=== PATIENT | female | born 1955 | race Caucasian/White ===

== ENCOUNTER 2017-06-15 12:46 | Inpatient (IN) | payer BC ==
[~2017-06-15] VITALS: Ht 172.7 cm; Wt 124.7 kg
[2017-06-15] MEDS ORDERED: GLUCOPHAGE850 MG (13:39)
[2017-06-15] MEDS ORDERED: ENOXAPARIN SODIUM INJ 100 MG/ML SYR SC STA (13:40)
[2017-06-15] MEDS ORDERED: ASPIRIN 81 MG CHEW TAB PO STA (13:40)
[2017-06-15] MEDS ORDERED: PANTOPRAZOLE 40 MG 10ML VIAL IV STA (13:40)
[2017-06-15] MEDS ORDERED: SODIUM CHLORIDE 0.9% 1000ML 1,000 ML IV STA ×2 (13:40)
[2017-06-15] MEDS ORDERED: ADENOSINE 6 MG/2 ML VIAL IV ONE ×2 (13:45→14:00)
[2017-06-15] MEDS ORDERED: METOPROLOL TARTRATE INJ 1 MG/ML VIAL IV ONE ×3 (13:45→14:00)
[2017-06-15] MEDS ORDERED: METOPROLOL TARTRATE 50 MG TAB PO ONE (13:45)
[2017-06-15] MEDS ORDERED: ADENOSINE 6MG/2ML 4 ML ONE (13:47)
[2017-06-15] MEDS ORDERED: SODIUM CHLORIDE 0.9% 1000ML 1,000 ML ONE (13:48)
[2017-06-15 13:49] LABS: BASOPHILS % 0.3 % (0.0-1.0); EOSINOPHILS # (AUTO) 0.2 (0.0-0.4); EOSINOPHILS % 1.7 % (0.0-6.0); HEMATOCRIT 31.8 % (34.2-44.1); HEMOGLOBIN 10.2 g/dL (12.0-16.0); LYMPHOCYTES # (AUTO) 0.9 (1.0-3.2); LYMPHOCYTES % 10.1 % (18.0-39.1); MEAN CORPUSCULAR HEMOGLOBIN 30.2 pg (28-32); MEAN CORPUSCULAR HGB CONC 32.1 g/dL (31-35); MEAN CORPUSCULAR VOLUME 94.1 fL (81-99); MONOCYTES # (AUTO) 0.7 (0.2-0.8); MONOCYTES % 8.4 % (4.4-11.3); NEUTROPHILS # (AUTO) 6.9 (2.1-6.9); NEUTROPHILS % 79.2 % (38.7-80.0); PLATELET COUNT 288 x10e3/uL (140-360); RED BLOOD COUNT 3.38 x10e6/uL (3.6-5.1); RED CELL DISTRIBUTION WIDTH 12.3 % (11.7-14.4)
[2017-06-15 13:53] LABS: INR 1.08; PROTHROMBIN TIME 13.2 seconds (11.9-14.5)
[2017-06-15 13:54] LABS: PARTIAL THROMBOPLASTIN TIME 27.8 seconds (23.8-35.5)
[2017-06-15] MEDS ORDERED: DIGOXIN INJ 0.25 MG/ML 2 ML AMP IV ONE (14:00)
[2017-06-15 14:02] LABS: ALBUMIN 3.6 g/dL (3.5-5.0); ALBUMIN/GLOBULIN RATIO 1.2 (0.8-2.0); ANION GAP 17.7 mmol/L (8-16); CALCIUM 9.5 mg/dL (8.4-10.2); CREATININE, SERUM 1.15 mg/dL (0.57-1.11); MAGNESIUM 1.4 MG/DL (1.3-2.1); POTASSIUM 3.7 mmol/L (3.5-5.1)
[2017-06-15 14:21] LABS: CREATINE KINASE MB 1.4 ng/mL (0-5.0); THYROID STIMULATING HORMONE 2.113 uIU/mL (0.350-4.940)
[2017-06-15] MEDS ORDERED: CEFTRIAXONE SOD 1 GM VIAL ONE ×2 (14:23→14:25)
[2017-06-15] MEDS ORDERED: DEXTROSE 50% SYRINGE 50 ML IV PRN (14:30)
[2017-06-15] MEDS ORDERED: MORPHINE SULFATE 2 MG/ML SYR IV PRN (14:30)
[2017-06-15] MEDS ORDERED: FAMOTIDINE 20 MG/2 ML VIAL IV SCH (14:30)
[2017-06-15] MEDS ORDERED: METOPROLOL TARTRATE 25 MG TAB PO SCH (14:30)
[2017-06-15] MEDS ORDERED: ONDANSETRON HCL INJ 2 MG/ML VIAL IV PRN (14:30)
--- NOTE | 2017-06-15 14:44 | Diagnostic Imaging Report ---
PROCEDURE: A single AP view of the chest. COMPARISON: None. INDICATIONS: SHORTNESS OF BREATH, WEAKNESS, LOW O2 LEVELS FINDINGS: Lines/tubes: None. Lungs: The lungs are well inflated. Central peribronchovascular thickening/cuffing. There is also mild haziness of the medial right lower lung field. Pleura: There is no pleural effusion or pneumothorax. Heart and mediastinum: The cardiac silhouette is borderline in size. Bones: No acute bony abnormality. IMPRESSION: Central peribronchovascular thickening/cuffing. There is also mild haziness of the medial right lower lung field. Underlying infiltrate cannot be excluded. Dictated by: Farhat Aguilar M.D. on 06/15/2017 at 14:43 Electronically approved by: Farhat Aguilar M.D. on 06/15/2017 at 14:43
[2017-06-15] MEDS ORDERED: LASIX40 MG PO (15:03)
[2017-06-15] MEDS ORDERED: ACTOS15 MG PO (15:03)
[2017-06-15] MEDS ORDERED: LANTUS 3ML100 UNITS/ SQ (15:03)
[2017-06-15] MEDS ORDERED: HYDROCHLOROTHIA25 MG (15:03)
[2017-06-15] MEDS ORDERED: GLIMEPIRIDE2 MG PO (15:03)
[2017-06-15] MEDS ORDERED: LOSARTAN POTAS100 MG PO (15:06)
--- OUTSIDE RECORDS SUMMARY | 2017-06-15 18:01 | XMS REPORT ---
Author Author [facility] Address Unknown Phone Unavailable Care Team Providers Care Grocery Packer Name Role Phone ENA NIDA Unavailable Unavailable Problems This patient has no known problems. Allergies, Adverse Reactions, Alerts This patient has no known allergies or adverse reactions. Medications This patient has no known medications. Results Test Description Test Time Test Comments Text Results Atomic Results Result Comments CHEST SINGLE (PORTABLE) [place] [address] Patient Name: AKASH SRIVASTAVA MR #: [id number] : 1955 Age/Sex: 62/F Req #: [id number] Adm Physician: Ordered by: NIDA SUTHERLAND MD, MD Report #: [id number] Location: ER Room/Bed: Procedure: [id number] DX/CHEST SINGLE (PORTABLE) Exam Date: 06/15/17 Exam Time: 1405 REPORT STATUS: Signed PROCEDURE: A single AP view of the chest. COMPARISON: None. INDICATIONS: SHORTNESS OF BREATH, WEAKNESS, LOW O2 LEVELS FINDINGS: Lines/tubes: None. Lungs: The lungs are well inflated. Central peribronchovascular thickening/cuffing. There is also mild haziness of the medial right lower lung field. Pleura: There is no pleural effusion or pneumothorax. Heart and mediastinum: The cardiac silhouette is borderline in size. Bones: No acute bony abnormality. IMPRESSION: Central peribronchovascular thickening/cuffing. There is also mild haziness of the medial right lower lung field. Underlying infiltrate cannot be excluded. Dictated by: Farhat Aguilar M.D. on 06/15/2017 at 14:43 Electronically approved by: Farhat Aguilar M.D. on 06/15/2017 at 14:43 Dictated By: FARHAT AGUILAR MD 1443 Transcribed By: AUGUSTO on 06/15/17 1443 COPY TO: NIDA SUTHERLAND
[2017-06-15 18:44] LABS: BILIRUBIN,URINE NEGATIVE (NEGATIVE); COLOR,URINE YELLOW (YELLOW); KETONES,URINE NEGATIVE (NEGATIVE); LEUKOCYTE ESTERASE ,URINE NEGATIVE (NEGATIVE); NITRITE,URINE NEGATIVE (NEGATIVE); PROTEIN,URINE DIPSTICK NEGATIVE (NEGATIVE); URINE UROBILINOGEN 0.2 mg/dL (0.2 - 1)
[2017-06-15 18:45] LABS: CLARITY,URINE SL CLOUDY (CLEAR)
[2017-06-15 19:17] LABS: EPITHELIAL CELLS,URINE FEW /LPF
[2017-06-15] MEDS: INSULIN REGULAR, HUMAN 100 UNIT/1 ML 3ML VIAL SQ SCH ×2 (19:38→23:00)
[2017-06-15] MEDS ORDERED: AMIODARONE HCL IV ONE ×2 (20:00→20:47)
[2017-06-15] MEDS ORDERED: AMIODARONE HCL 150 MG/100 ML BAG IV ONE (20:00)
[2017-06-15] MEDS ORDERED: AMIODARONE HCL 900 MG in DEXTROSE 5 % 500ML BOTTLE 500 ML IV ONE (20:30)
[2017-06-15] MEDS ORDERED: AMIODARONE HCL 150 MG in DEXTROSE 5% 100ML 100 ML IV SCH (20:30)
[2017-06-15 20:41] LABS: % IRON SATURATION 7 % (15-50); FREE THYROXINE INDEX 2.7248 (1.4-3.8); IRON 25 ug/dL (50-170); THYROID STIMULATING HORMONE 2.106 uIU/mL (0.350-4.940); TOTAL IRON BINDING CAPACITY 368 ug/dL (261-478); TRANSFERRIN 263 mg/dL (180-382)
[2017-06-15] MEDS ORDERED: AMIODARONE HCL INJ 150MG/3ML ONE (20:44)
[2017-06-15] MEDS ORDERED: AMIODARONE 900MG 500 ML IV ONE (20:47)
--- NOTE | 2017-06-15 21:34 | Cardiology Report ---
ECHOCARDIOGRAM M-MODE: Normal chamber sizes, left ventricular hypertrophy, normal contractility, normal mitral and aortic valves, no pericardial effusion. SECTOR SCAN: Normal chamber sizes, borderline left ventricular hypertrophy, abnormal left ventricular wall thickness, diminished left ventricular contractility, normal mitral, aortic, and tricuspid valves, no pericardial effusion. SECTOR SCAN: Abnormal left ventricular wall thickness, diminished left ventricular contractility. Ejection fraction is approximately 50%. Mitral, aortic, and tricuspid valves are grossly normal. There is no pericardial effusion. CARDIAC DOPPLER STUDY WITH COLOR: One-plus aortic regurgitation, 1 to 2+ mitral regurgitation, 1+ tricuspid regurgitation. CONCLUSIONS 1. Left ventricular ejection fraction is approximately 40%. The diminished left ventricular ejection fraction may be due to high heart rate. 2. Mild to moderate mitral regurgitation. 3. Mild aortic regurgitation. 4. Mild tricuspid regurgitation. 5. Abnormal left atrial size. Job#: [id number] EUFEMIA cc:DR NIDA SUTHERLAND
[2017-06-15 22:23] LABS: CREATINE KINASE MB 1.4 ng/mL (0-5.0)
[2017-06-15] MEDS: METOPROLOL TARTRATE 50 MG TAB PO SCH (22:52)
[2017-06-15] MEDS: ENOXAPARIN SOD INJ 60 MG/0.6 ML SYR SC SCH (23:00)
[2017-06-15 23:50] VITALS: BP 98/66
[2017-06-16] VITALS (10 sets, daily range): BP systolic 76–112; BP diastolic 58–66
[2017-06-16 06:36] LABS: BASOPHILS # (AUTO) 0.1 (0.0-0.1); BASOPHILS % 0.7 % (0.0-1.0); EOSINOPHILS # (AUTO) 0.2 (0.0-0.4); EOSINOPHILS % 2.4 % (0.0-6.0); HEMATOCRIT 29.4 % (34.2-44.1); HEMOGLOBIN 9.4 g/dL (12.0-16.0); LYMPHOCYTES # (AUTO) 1.1 (1.0-3.2); LYMPHOCYTES % 15.8 % (18.0-39.1); MEAN CORPUSCULAR HEMOGLOBIN 30.4 pg (28-32); MEAN CORPUSCULAR VOLUME 95.1 fL (81-99); MONOCYTES # (AUTO) 0.7 (0.2-0.8); MONOCYTES % 9.6 % (4.4-11.3); NEUTROPHILS # (AUTO) 5.1 (2.1-6.9); NEUTROPHILS % 71.2 % (38.7-80.0); PLATELET COUNT 256 x10e3/uL (140-360); RED BLOOD COUNT 3.09 x10e6/uL (3.6-5.1); RED CELL DISTRIBUTION WIDTH 12.3 % (11.7-14.4)
[2017-06-16 07:01] LABS: CREATINE KINASE MB 1.1 ng/mL (0-5.0)
[2017-06-16 07:09] LABS: ALBUMIN 3.1 g/dL (3.5-5.0); ANION GAP 11.7 mmol/L (8-16); CALCIUM 9.1 mg/dL (8.4-10.2); CHOL/HDL RATIO 2.1 (3.0-3.6); CREATININE, SERUM 1.16 mg/dL (0.57-1.11); MAGNESIUM 1.4 MG/DL (1.3-2.1); PHOSPHORUS 3.7 MG/DL (2.3-4.7); POTASSIUM 3.7 mmol/L (3.5-5.1)
[2017-06-16] MEDS: INSULIN REGULAR, HUMAN 100 UNIT/1 ML 3ML VIAL SQ SCH (07:30)
[2017-06-16] MEDS: ASPIRIN 81 MG ENTERIC COATED PO SCH (08:22)
[2017-06-16] MEDS ORDERED: LOSARTAN POTASSIUM 100 MG TAB PO SCH (09:00)
[2017-06-16] MEDS: METOPROLOL TARTRATE 50 MG TAB PO SCH ×3 (09:00→21:00)
[2017-06-16] MEDS ORDERED: CLOPIDOGREL BISULFATE 75 MG TAB PO SCH (09:00)
[2017-06-16] MEDS: FAMOTIDINE 10MG/ML 20ML VIAL IV SCH ×2 (09:45→21:39)
[2017-06-16] MEDS: ENOXAPARIN SOD INJ 60 MG/0.6 ML SYR SC SCH ×2 (09:45→21:39)
[2017-06-16] MEDS ORDERED: AMIODARONE HCL 900 MG in DEXTROSE 5% 500ML 500 ML IV SCH (11:45)
[2017-06-16] MEDS: AMIODARONE HCL 900 MG in DEXTROSE 5% 500ML 500 ML IV SCH (12:02)
[2017-06-16] MEDS ORDERED: DEXTROSE 50% SYRINGE 50 ML IV PRN (12:15)
[2017-06-16] MEDS: INSULIN LISPRO 100 UNIT/1 ML 3ML VIAL SQ SCH ×3 (13:08→21:40)
--- NOTE | 2017-06-16 14:53 | Consultation ---
CLINICAL HISTORY: This is a 62-year-old, white woman, seen in the emergency room at [facility] because of rapid atrial fibrillation, atrial flutter, with ventricular rates in the range of 174 beats per minute. This patient's [id number] is an old patient of mine, so they recognized me right away. She apparently has history of hypertension and diabetes. She has been experiencing dyspnea with exertion for approximately a week. Finally, she decided to go see Dr. Tellez today and was found to have atrial fibrillation, atrial flutter, with ventricular rate in the range of 170 beats per minute. She was referred to our emergency room, where she was treated with intravenous adenosine as well as metoprolol and digoxin with slowing of the ventricular rate to the 80-90 range. She was also given fluids apparently because of low blood pressure. Echocardiogram showed ejection fraction of approximately 40%, was possibly exacerbated. Cardiology consultation requested. PAST MEDICAL HISTORY: Remarkable for the above-mentioned conditions. MEDICATIONS AT HOME: Include 1. Lasix 40 mg p.o. daily. 2. Glimepiride 2 mg p.o. daily. 3. Lantus insulin 30 units subcutaneously at bedtime. 4. Metformin 2000 mg b.i.d. 5. Actos 30 mg p.o. every day. 6. Losartan 100 mg p.o. daily. PERSONAL AND SOCIAL HISTORY: She denies smoking, drinking or drug abuse. 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 PAST SURGERY: Included cervical neck surgery, 2013, by as well. PAST MEDICAL HISTORY: Also remarkable for anemia, peptic ulcer disease treated [place] [address] Lorenzo Garcia. PHYSICAL EXAMINATION GENERAL: She is overweight, alert, coherent. VITAL SIGNS: Otherwise, stable. CARDIAC: Jugular veins were not well seen. S1, S2 distant and rapid. LUNGS: Clear. ABDOMEN: Soft. Bowel sounds are present. EXTREMITIES: Showed no cyanosis, clubbing, edema. LABORATORY STUDIES: The white count is 8700, hemoglobin 10.2, platelet count is 288,000. PT is 13.2. INR is 1.0. Urinalysis is negative. Electrolytes are normal. BUN is 30. Creatinine 1.1. GFR 48. Glucose 150. TSH 2.11. Cardiac enzymes are negative. Troponin is normal. IMPRESSIONS 1. Rapid atrial fibrillation/atrial flutter with ventricular rates up to 170: Possibly started a week ago. There is no evidence of intracardiac thrombi by transthoracic echocardiogram, although this is not felt to be completely reliable. 2. Cardiomyopathy with ejection fraction of 40%. This may be related to tachycardia and may improved with time. 3. Diabetes. 4. Hypertension. 5. History of peptic ulcer disease and anemia, 2012. The current hemoglobin is 10.2. 6. History of cervical neck surgery, 2013. 7. Recent usage of pseudoephedrine for allergic rhinitis, which may have triggered the atrial fibrillation. RECOMMENDATION: Avoid pseudoephedrine or any other type of stimulants. Avoid alcohol. Pursue the trial of intravenous amiodarone. If needed, consider transesophageal echocardiogram, electrocardioversion. This patient may require a long-term anticoagulation, but we need to be careful of GI bleeding with history of peptic ulcer disease dating back to 2012 and anemia. Job#: [id number] EUFEMIA cc:HEATHER TELLEZ MD
[2017-06-16] MEDS ORDERED: SODIUM CHLORIDE 0.9% 1000ML 1,000 ML IV SCH (20:15)
[2017-06-16] MEDS: INSULIN DETEMIR 100 UNIT/ML PEN SQ SCH (21:40)
[2017-06-17] VITALS (10 sets, daily range): BP systolic 102–115; BP diastolic 48–69
[2017-06-17] MEDS: INSULIN LISPRO 100 UNIT/1 ML 3ML VIAL SQ SCH ×4 (07:30→20:49)
[2017-06-17] MEDS: ASPIRIN 81 MG ENTERIC COATED PO SCH (10:00)
[2017-06-17] MEDS: ENOXAPARIN SOD INJ 60 MG/0.6 ML SYR SC SCH ×2 (10:00→21:30)
[2017-06-17] MEDS: FERROUS SULFATE 325 MG TAB PO SCH (10:00)
[2017-06-17] MEDS: METOPROLOL TARTRATE 50 MG TAB PO SCH (10:01)
[2017-06-17] MEDS: FAMOTIDINE 10MG/ML 20ML VIAL IV SCH ×2 (10:03→21:30)
[2017-06-17] MEDS: AMIODARONE HCL 200 MG TAB PO SCH (10:16)
[2017-06-17] MEDS: AMIODARONE HCL 900 MG in DEXTROSE 5% 500ML 500 ML IV ONE ×2 (10:16→17:15)
[2017-06-17] MEDS: SODIUM CHLORIDE 0.9% 1000ML 1,000 ML IV SCH ×2 (13:00→21:31)
[2017-06-17] MEDS: SODIUM CHLORIDE 0.9% 1000ML 500 ML IV SCH ×2 (17:10→17:13)
[2017-06-17] MEDS ORDERED: SODIUM CHLORIDE 0.9% 1000ML 1,000 ML IV ONE (20:15)
[2017-06-17] MEDS: METOPROLOL TARTRATE 25 MG TAB PO SCH (20:51)
[2017-06-17] MEDS: INSULIN DETEMIR 100 UNIT/ML PEN SQ SCH (20:52)
[2017-06-18] VITALS (15 sets, daily range): BP systolic 89–119; BP diastolic 34–87
[2017-06-18] MEDS: FAMOTIDINE 10MG/ML 20ML VIAL IV SCH (08:12)
[2017-06-18] MEDS: INSULIN LISPRO 100 UNIT/1 ML 3ML VIAL SQ SCH ×2 (08:12→11:30)
[2017-06-18] MEDS ORDERED: BENZOCAINE 20% SPR 60 ML CAN ONE (08:47)
[2017-06-18] MEDS: METOPROLOL TARTRATE 25 MG TAB PO SCH (09:00)
[2017-06-18] MEDS: AMIODARONE HCL 200 MG TAB PO SCH (09:00)
[2017-06-18] MEDS: FERROUS SULFATE 325 MG TAB PO SCH (09:00)
[2017-06-18] MEDS: ASPIRIN 81 MG ENTERIC COATED PO SCH (09:00)
[2017-06-18] MEDS ORDERED: AMIODARONE HCL 200 MG TAB PO NR (10:45)
--- NOTE | 2017-06-18 14:16 | Operative Report ---
DATE OF PROCEDURE: PROCEDURE: Electrical cardioversion. CLINICAL HISTORY AND INDICATIONS: This is a 52-year-old white woman who presented with atrial flutter, symptomatic. She was treated with intravenous amiodarone, failing to convert. Her initial presentation was relatively early. She had atrial flutter rather than atrial fibrillation, and she has been on anticoagulants. Transthoracic echo failed to show any intracardiac thrombus. After discussing the various diagnostic treatment alternatives including STEVE, we decided to just do the electric shock. PROCEDURE: She was brought to the endoscopy suite in a fasting state. Anesthesia was administered by anesthesiology. The patient underwent single synchronized 100-joule shock and converted to a sinus rhythm PAC. She tolerated the procedure well. CONCLUSION: Successful electrical cardioversion using 100 joules, converting atrial flutter to sinus rhythm. Job#: [id number]
[2017-06-18] MEDS ORDERED: RIVAROXABAN 20 MG TABLET PO SCH (17:00)
[2017-06-18] MEDS ORDERED: LIDOCAINE HCL 2% LOCAL INJ 5 ML SDV VIAL INJ ONE (18:08)
[2017-06-18] MEDS ORDERED: PROPOFOL IV EMULSION 10 MG/ML 20 ML VIAL ONE (18:08)
[2017-06-18] MEDS ORDERED: MIDAZOLAM HCL 2 MG/2 ML VIAL ONE (18:34)
[2017-06-18] MEDS ORDERED: FENTANYL CITRATE/PF 100MCG/2 ML INJ ONE (18:34)
== END 2017-06-18 15:31 | disposition home or self-care (01) | DRG 310 ==
LOC: ER 12:46 → ERHOLD 18:00 → IMCU 23:12
PROVIDERS: ADMIT Internal Medicine; ATTEND Internal Medicine
PROC: 5A2204Z Restoration of Cardiac Rhythm, Single (ICD-10-PCS; principal; 2017-06-18)
DX: I48.92 Unspecified atrial flutter (principal); I42.9 Cardiomyopathy, unspecified; I95.9 Hypotension, unspecified; E11.649 Type 2 diabetes mellitus with hypoglycemia without coma; K27.9 Peptic ulcer, site unspecified, unspecified as acute or chronic, without hemorrhage or perforation; I48.91 Unspecified atrial fibrillation; T44.995A Adverse effect of other drug primarily affecting the autonomic nervous system, initial encounter; D50.9 Iron deficiency anemia, unspecified; I12.9 Hypertensive chronic kidney disease with stage 1 through stage 4 chronic kidney disease, or unspecified chronic kidney disease; N18.3 Chronic kidney disease, stage 3 (moderate)
CPT/HCPCS: 36415; 71045; 80053; 80061; 81001; 82550; 82553; 82948; 83540; 83690; 83735; 84100; 84436; 84443; 84466; 84479; 84484; 85025; 85610; 85730; 87086; 93005; 93306; 96360; 96372; 99284; J0153; J0696; J1160; J1650; J2001; J2250; J7030; J7060

== ENCOUNTER 2017-06-30 13:14 | Emergency (ER) | payer BC ==
[~2017-06-30] VITALS: Ht 172.7 cm; Wt 124.7 kg
[~2017-06-30 13:14] MED LIST: ACTOS15 MG PO; GLIMEPIRIDE2 MG PO; GLUCOPHAGE850 MG; HYDROCHLOROTHIA25 MG; LANTUS 3ML100 UNITS/ SQ; LASIX40 MG PO; LOSARTAN POTAS100 MG PO
--- OUTSIDE RECORDS SUMMARY | 2017-06-30 13:18 | XMS REPORT | Continuity of Care Document ---
Author Author [facility] Organization [facility] Address [address] [place] [address] Phone Unavailable Care Team Providers Care Bar Pilot Name Role Phone HEATHER CORCORAN MD PCP Insurance Providers Guarantor Kaycee Srivastava Address [address] [place] [address] Email [facility] Policy Number [id number] Subscriber's Name Anshul Srivastava W Relationship 01 Group Number [id number] Group Name [employer] Effective Date 08 Advance Directives Directive Response Recorded Date/Time Does the patient have an advance directive? No 06/15/17 5:47pm If yes, is advance directive on file with [facility]? No 06/15/17 5:47pm If not on file with [facility] will patient provide a copy? No 06/15/17 5:47pm Do you have a Directive to Physician? No 06/15/17 5:47pm Do you have a Medical Power of Jig Grinder? No 06/15/17 5:47pm Do you have an out of hospital Do Not Resuscitate Order? No 06/15/17 5:47pm Do you have any special needs we should be aware of? No 06/15/17 5:47pm Do you have a support person here with you today? Yes 06/15/17 5:47pm Did patient receive Notice of Privacy Practices? Yes 06/15/17 5:47pm Did patient receive patient rights and responsibilities? Yes 06/15/17 5:47pm Problems Medical Problem Onset Date Status Atrial flutter with rapid ventricular response Unknown Medications Current Home Medications Medication Dose Units Route Directions Days Qty Instructions Start Date Furosemide (Lasix) 40 Mg Tablet 40 Mg Oral Daily 30 Tab Glimepiride 2 Mg Tablet 4 Mg Oral Insulin Glargine (Lantus 3ML Pen) 100 Units/1 Ml Inj 30 Sub-Q Bedtime Losartan Potassium 100 Mg Tablet 100 Mg Oral Daily patient states takes 100/25 mg Metformin Hcl (Glucophage) 850 Mg Tablet 2,000 Twice A Day Pioglitazone Hcl (Actos*) 15 Mg Tablet 30 Mg Oral Daily 60 Tab Past Home Medications Medication Directions Ordered Status Hydrochlorothiazide 25 Mg Tablet, 25 Mg Daily Discontinued Social History Social History Problem Response Recorded Date/Time Onset Date Status Hx Psychiatric Problems No 06/16/2017 12:54am Not Applicable Not Applicable Hx Eating Disorder No 06/16/2017 12:54am Not Applicable Not Applicable Hx Substance Use Disorder No 06/16/2017 12:54am Not Applicable Not Applicable Hx Depression No 06/16/2017 12:54am Not Applicable Not Applicable Hx Alcohol Use No 06/16/2017 12:54am Not Applicable Not Applicable Hx Substance Use Treatment No 06/16/2017 12:54am Not Applicable Not Applicable Hx Physical Abuse No 06/16/2017 12:54am Not Applicable Not Applicable Smoking Status Start Date Stop Date Never Smoker Hospital Discharge Instructions No hospital discharge instruction information available. Plan of Care Discharge Date 06/18/17 3:31pm Disposition HOME, SELF-CARE Instructions/Education Provided Atrial Fibrillation Diabetes and Diet Prescriptions See Medication Section Additional Instructions/Education - Admission 06/15/2017 - 06/18/2017 - Follow up with endless track vehicle supervisor, Dr. Nuno in 1 week, bring all medications to appointment [address], [address] [place] [id number] Functional Status Query Response Date Recorded FUNCTIONAL STATUS ` June 16, 2017 10:10am Assistive Devices None June 16, 2017 6:53pm Toileting Ability Independent June 16, 2017 6:53pm Allergies, Adverse Reactions, Alerts Allergen Type Severity Reaction Status Last Updated Levofloxacin Allergy Intermediate SEVERE NAUSEA/VOMITING Active 06/15/17 Immunizations No immunization information available. Vital Signs Acute Vital Signs Vital Response Date/Time Temperature (Fahrenheit) 97.6 degrees F (97.6 - 99.5) 06/18/2017 11:50am Pulse Pulse Rate (adult) 64 bpm (60 - 90) 06/18/2017 12:20pm Respiratory Rate 19 bpm (12 - 24) 06/18/2017 11:50am Blood Pressure 99/61 mm Hg 06/18/2017 12:20pm Height 5 ft 8 in 06/15/2017 1:04pm Weight 275 lb 06/15/2017 1:04pm Body Mass Index 41.8 kg/m^2 06/15/2017 1:04pm Results Laboratory Results Test Name Result Units Flags Reference Collection Date/Time Result Date/ Time Comments White Blood Count 7.09 x10e3/uL 4.8-10.8 06/16/2017 6:26am 06/16/2017 6 :36am Red Blood Count 3.09 x10e6/uL L 3.6-5.1 06/16/2017 6:2606/16/2017 6: 36am Hemoglobin 9.4 g/dL L 12.0-16.0 06/16/2017 6:06/16/2017 6:36am Hematocrit 29.4 % L 34.2-44.1 06/16/2017 6:2606/16/2017 6:36am Mean Corpuscular Volume 95.1 fL 81-99 06/16/2017 6:am 06/16/2017 6: 36am Mean Corpuscular Hemoglobin 30.4 pg 28-32 06/16/2017 6:am 06/16/2017 6:36am Mean Corpuscular Hemoglobin Concent 32.0 g/dL 31-35 06/16/2017 6:am 06/16/2017 6:36am Red Cell Distribution Width 12.3 % 11.7-14.4 06/16/2017 6:2017 6:36am Platelet Count 256 x10e3/uL 140-360 06/16/2017 6:06/16/2017 6: 36am Neutrophils (%) (Auto) 71.2 % 38.7-80.0 06/16/2017 6:06/16/2017 6: 36am Lymphocytes (%) (Auto) 15.8 % L 18.0-39.1 06/16/2017 6:06/16/2017 6 :36am Monocytes (%) (Auto) 9.6 % 4.4-11.3 06/16/2017 6:06/16/2017 6: 36am Eosinophils (%) (Auto) 2.4 % 0.0-6.0 06/16/2017 6:06/16/2017 6: 36am Basophils (%) (Auto) 0.7 % 0.0-1.0 06/16/2017 6:06/16/2017 6:36am IM GRANULOCYTES % 0.3 % 0.0-1.0 06/16/2017 6:06/16/2017 6:36am Neutrophils # (Auto) 5.1 2.1-6.9 06/16/2017 6:06/16/2017 6:36am Lymphocytes # (Auto) 1.1 1.0-3.2 06/16/2017 6:06/16/2017 6:36am Monocytes # (Auto) 0.7 0.2-0.8 06/16/2017 6:06/16/2017 6:36am Eosinophils # (Auto) 0.2 0.0-0.4 06/16/2017 6:06/16/2017 6:36am Basophils # (Auto) 0.1 0.0-0.1 06/16/2017 6:06/16/2017 6:36am Absolute Immature Granulocyte (auto 0.02 x10e3/uL 0-0.1 06/16/2017 6: 06/16/2017 6:36am Prothrombin Time 13.2 seconds 11.9-14.5 06/15/2017 1:40pm 06/15/2017 1: 58pm Prothromb Time International Ratio 1.08 06/15/2017 1:40pm 2017 1:58pm Oral Anticoagulant Therapy INR Values: 1. Low Intensity Therapy 1.5 - 2.0 2. Moderate Intensity Therapy 2.0 - 3.0 3. High Intensity Therapy(1) 2.5 - 3.5 4. High Intensity Therapy(2) 3.0 - 4.0 5. Panic Value INR > 5.0 Activated Partial Thromboplast Time 27.8 seconds 23.8-35.5 06/15/2017 1: 40pm 06/15/2017 1:58pm Urine Color YELLOW YELLOW 06/15/2017 6:00pm 06/15/2017 6:45pm Urine Clarity SL CLOUDY CLEAR 06/15/2017 6:00pm 06/15/2017 6:45pm Urine Specific Premium 1.015 1.010-1.025 06/15/2017 6:00pm 2017 6:45pm Urine pH 6 5 - 7 06/15/2017 6:00pm 06/15/2017 6:45pm Urine Leukocyte Esterase NEGATIVE NEGATIVE 06/15/2017 6:00pm 2017 6:45pm Urine Nitrite NEGATIVE NEGATIVE 06/15/2017 6:00pm 06/15/2017 6:45pm Urine Protein NEGATIVE NEGATIVE 06/15/2017 6:00pm 06/15/2017 6:45pm Urine Glucose (UA) NEGATIVE NEGATIVE 06/15/2017 6:00pm 06/15/2017 6: 45pm Urine Ketones NEGATIVE NEGATIVE 06/15/2017 6:00pm 06/15/2017 6:45pm Urine Urobilinogen 0.2 mg/dL 0.2 - 1 06/15/2017 6:00pm 06/15/2017 6: 45pm Urine Bilirubin NEGATIVE NEGATIVE 06/15/2017 6:00pm 06/15/2017 6: 45pm Urine Blood NEGATIVE NEGATIVE 06/15/2017 6:00pm 06/15/2017 6:45pm Urine WBC NONE /HPF 0-5 06/15/2017 6:00pm 06/15/2017 7:17pm Urine RBC NONE /HPF 0-5 06/15/2017 6:00pm 06/15/2017 7:17pm Urine Bacteria NONE /HPF NONE 06/15/2017 6:00pm 06/15/2017 7:17pm Urine Epithelial Cells FEW /LPF NONE 06/15/2017 6:00pm 06/15/2017 7: 17pm Sodium Level 134 mmol/L L 136-145 06/16/2017 6:06/16/2017 7:10am Potassium Level 3.7 mmol/L 3.5-5.1 06/16/2017 6:06/16/2017 7:10am Chloride Level 101 mmol/L 98-107 06/16/2017 6:06/16/2017 7:10am Carbon Dioxide Level 25 mmol/L 22-29 06/16/2017 6:06/16/2017 7: 10am Anion Gap 11.7 mmol/L 806/16/2017 6:06/16/2017 7:10am Blood Urea Nitrogen 30 mg/dL H 706/16/2017 6:06/16/2017 7:10am Creatinine 1.16 mg/dL H 0.57-1.11 06/16/2017 6:06/16/2017 7:10am BUN/Creatinine Ratio 26 H 606/16/2017 6:06/16/2017 7:10am Estimat Glomerular Filtration Rate 47 ML/MIN L 60- 06/16/2017 6: 7:10am Ranges were taken from the National Kidney Disease Education Program and the National Kid[employer] Foundation literature. Reference ranges: 60 or greater: Normal 16-59 (for 3 consecutive months): Chronic kidney disease 15 or less: Kidney failure Glucose Level 111 mg/dL 74-118 06/16/2017 6:06/16/2017 7:10am Calcium Level 9.1 mg/dL 8.4-10.2 06/16/2017 6:06/16/2017 7:10am Bedside Glucose 144 mg/dL H 70-120 06/18/2017 11:06/18/2017 11: 53am Meter ID: [id number] Phosphorus Level 3.7 MG/DL 2.3-4.7 06/16/2017 6:06/16/2017 7:10am Magnesium Level 1.4 MG/DL 1.3-2.1 06/16/2017 6:06/16/2017 7:10am Iron Level 25 ug/dL L 50-170 06/15/2017 1:20pm 06/15/2017 8:42pm Total Iron Binding Capacity 368 ug/dL 261-478 06/15/2017 1:20pm 2017 8:42pm Percent Iron Saturation 7 % L 15-50 06/15/2017 1:20pm 06/15/2017 8:42pm Transferrin 263 mg/dL 180-382 06/15/2017 1:20pm 06/15/2017 8:42pm Total Bilirubin 0.6 mg/dL 0.2-1.2 06/16/2017 6:06/16/2017 7:10am Aspartate Amino Transf (AST/SGOT) 27 IU/L 5-34 06/16/2017 6:2017 7:10am Alanine Aminotransferase (ALT/SGPT) 34 IU/L 0-55 06/16/2017 6: 7:10am Total Protein 6.1 g/dL L 6.5-8.1 06/16/2017 6:06/16/2017 7:10am Albumin 3.1 g/dL L 3.5-5.0 06/16/2017 6:06/16/2017 7:10am Globulin 3.0 g/dL 2.3-3.5 06/16/2017 6:06/16/2017 7:10am Albumin/Globulin Ratio 1.0 0.8-2.0 06/16/2017 6:06/16/2017 7: 10am Alkaline Phosphatase 76 IU/L 40-150 06/16/2017 6:06/16/2017 7: 10am Triglycerides Level 54 MG/DL 0-149 06/16/2017 6:06/16/2017 7:10am Cholesterol Level 124 MD/DL 0-199 06/16/2017 6:06/16/2017 7:10am Less than 200 mg/dL Low Risk 201 - 239 mg/dL Borderline Risk 240 mg/dl and greater High Risk LDL Cholesterol 54 MG/DL L 60-130 06/16/2017 6:06/16/2017 7:10am HDL Cholesterol 59 MG/DL 40-60 06/16/2017 6:06/16/2017 7:10am Cholesterol/HDL Ratio 2.1 L 3.0-3.6 06/16/2017 6:26am 06/16/2017 7: 10am Creatine Kinase 51 IU/L 29-168 06/16/2017 6:26am 06/16/2017 7:10am Creatine Kinase MB 1.10 ng/mL 0-5.0 06/16/2017 6:26am 06/16/2017 7: 04am Troponin I 0.097 ng/mL 0-0.300 06/16/2017 6:26am 06/16/2017 7:04am Lipase 20 U/L 8-78 06/15/2017 1:20pm 06/15/2017 2:06pm Free Thyroxine Index 2.7248 1.4-3.8 06/15/2017 1:20pm 06/15/2017 8: 42pm Thyroxine (T4) 8.20 ug/dL 4.5-10.9 06/15/2017 1:20pm 06/15/2017 8:42pm Our current method for Total T4 is not recommended for use as the only marker for evaluating patients for thyroid disorders. Triiodothyronine (T3) Uptake 33.23 % 22.5-37.0 06/15/2017 1:20pm 2017 8:42pm Thyroid Stimulating Hormone (TSH) 2.106 uIU/mL 0.350-4.940 06/15/2017 1: 20pm 06/15/2017 8:42pm Procedures Procedure Status Date Provider(s) MRI (magnetic resonance imaging) Active 06/18/17 NANCY ISABEL MD Encounters Encounter Location Arrival/Admit Date Discharge/Depart Date Attending Provider Discharged Inpatient [facility] 06/15/17 6:00pm 06/18/17 3:31pm MATTHIAS MORALES MD
[2017-06-30] MEDS ORDERED: SODIUM CHLORIDE 0.9% 1000ML 1,000 ML IV STA (13:28)
[2017-06-30] MEDS ORDERED: DILTIAZEM HCL 5 MG/ML 5 ML VIAL IV ONE ×2 (13:30→13:45)
[2017-06-30] MEDS ORDERED: METOLAZONE2.5 MG PO (13:39)
[2017-06-30] MEDS ORDERED: AMIODARONE HCL200 MG PO (13:39)
[2017-06-30] MEDS ORDERED: XARELTO20 MG PO (13:39)
[2017-06-30 13:47] LABS: BASOPHILS # (AUTO) 0.1 (0.0-0.1); BASOPHILS % 0.9 % (0.0-1.0); EOSINOPHILS # (AUTO) 0.2 (0.0-0.4); EOSINOPHILS % 3.4 % (0.0-6.0); HEMATOCRIT 36.4 % (34.2-44.1); HEMOGLOBIN 11.8 g/dL (12.0-16.0); LYMPHOCYTES # (AUTO) 1.1 (1.0-3.2); LYMPHOCYTES % 15.1 % (18.0-39.1); MEAN CORPUSCULAR HEMOGLOBIN 29.7 pg (28-32); MEAN CORPUSCULAR HGB CONC 32.4 g/dL (31-35); MEAN CORPUSCULAR VOLUME 91.7 fL (81-99); MONOCYTES # (AUTO) 0.6 (0.2-0.8); NEUTROPHILS # (AUTO) 5.1 (2.1-6.9); NEUTROPHILS % 72.2 % (38.7-80.0); PLATELET COUNT 348 x10e3/uL (140-360); RED BLOOD COUNT 3.97 x10e6/uL (3.6-5.1); RED CELL DISTRIBUTION WIDTH 12.3 % (11.7-14.4)
[2017-06-30 13:57] LABS: INR 2.02; PARTIAL THROMBOPLASTIN TIME 33.6 seconds (23.8-35.5); PROTHROMBIN TIME 21.5 seconds (11.9-14.5)
[2017-06-30 14:06] LABS: ANION GAP 14.4 mmol/L (8-16); CALCIUM 9.6 mg/dL (8.4-10.2); CREATININE, SERUM 1.57 mg/dL (0.57-1.11); POTASSIUM 4.4 mmol/L (3.5-5.1)
[2017-06-30 14:12] LABS: CREATINE KINASE MB 2.1 ng/mL (0-5.0)
[2017-06-30] MEDS ORDERED: FAMOTIDINE 20 MG TAB PO SCH (15:00)
[2017-06-30] MEDS ORDERED: SODIUM CHLORIDE FLUSH 10 ML SYR INJ PRN (15:00)
[2017-06-30] MEDS ORDERED: DEXTROSE 5% IV SCH (15:00)
[2017-06-30] MEDS ORDERED: AMIODARONE HCL IV SCH (15:00)
[2017-06-30] MEDS ORDERED: ONDANSETRON HCL INJ 2 MG/ML VIAL IV PRN (15:00)
[2017-06-30] MEDS ORDERED: DEXTROSE 50% SYRINGE 50 ML IV PRN (15:00)
--- NOTE | 2017-06-30 15:23 | Diagnostic Imaging Report ---
EXAMINATION: CHEST SINGLE (PORTABLE) INDICATION: \S\SOB \[id number] \S\1410 \S\Y COMPARISON: Chest radiograph 06/15/2017 FINDINGS: AP view TUBES and LINES: None. LUNGS: Lungs are well inflated. Lungs are clear. There is no evidence of pneumonia or pulmonary edema. PLEURA: No pleural effusion or pneumothorax. HEART AND MEDIASTINUM: The cardiomediastinal silhouette is unremarkable. BONES AND SOFT TISSUES: No acute osseous lesion. Soft tissues are unremarkable. UPPER ABDOMEN: No free air under the diaphragm. IMPRESSION: No acute thoracic abnormality. Signed by: DR. Lul Fitzgerald MD on 06/30/2017 3:20 PM
[2017-06-30] MEDS ORDERED: SODIUM CHLORIDE 0.9% 1000ML 1,000 ML ONE (15:27)
[2017-06-30] MEDS ORDERED: AMIODARONE HCL 150MG 100 ML IV ONE (15:30)
[2017-06-30] MEDS ORDERED: AMIODARONE HCL 100 ML IV SCH (15:30)
[2017-06-30] MEDS ORDERED: AMIODARONE 900MG 500 ML IV SCH (15:30)
[2017-06-30] MEDS ORDERED: SODIUM CHLORIDE 0.9% 1000ML 1,000 ML IV SCH (15:30)
[2017-06-30] MEDS ORDERED: INSULIN REGULAR, HUMAN 100 UNIT/1 ML 3ML VIAL SQ SCH (16:30)
== END 2017-06-30 17:57 | disposition home or self-care (01) ==
LOC: ER 13:14 → UNDOADMIN 15:32 → ERHOLD 15:32
DX: R00.2 Palpitations (principal); I48.92 Unspecified atrial flutter; I10 Essential (primary) hypertension; E11.9 Type 2 diabetes mellitus without complications; I50.9 Heart failure, unspecified
CPT/HCPCS: 36415; 71045; 80048; 82550; 82553; 84484; 85025; 85610; 85730; 93005; 99284; J7030

== ENCOUNTER → 2019-06-12 | Day surgery (SDC) | payer BC ==
[2019-06-10 13:37] LABS: BASOPHILS # (AUTO) 0.1 (0.0-0.1); BASOPHILS % 0.8 % (0.0-1.0); EOSINOPHILS # (AUTO) 0.1 (0.0-0.4); EOSINOPHILS % 1.7 % (0.0-6.0); HEMATOCRIT 34.8 % (34.2-44.1); HEMOGLOBIN 11.1 g/dL (12.0-16.0); LYMPHOCYTES # (AUTO) 0.8 (1.0-3.2); LYMPHOCYTES % 11.9 % (18.0-39.1); MEAN CORPUSCULAR HEMOGLOBIN 30.2 pg (28-32); MEAN CORPUSCULAR HGB CONC 31.9 g/dL (31-35); MEAN CORPUSCULAR VOLUME 94.8 fL (81-99); MONOCYTES # (AUTO) 0.5 (0.2-0.8); MONOCYTES % 7.9 % (4.4-11.3); NEUTROPHILS % 77.4 % (38.7-80.0); PLATELET COUNT 243 x10e3/uL (140-360); RED BLOOD COUNT 3.67 x10e6/uL (3.6-5.1); RED CELL DISTRIBUTION WIDTH 12.2 % (11.7-14.4)
[2019-06-10 13:49] LABS: INR 0.95; PARTIAL THROMBOPLASTIN TIME 26.4 seconds (23.8-35.5); PROTHROMBIN TIME 13.2 seconds (11.9-14.5)
[2019-06-10 13:54] LABS: ANION GAP 11.4 mmol/L (8-16); CALCIUM 9.4 mg/dL (8.4-10.2); CREATININE, SERUM 1.59 mg/dL (0.57-1.11); POTASSIUM 4.4 mmol/L (3.5-5.1)
--- NOTE | 2019-06-10 15:00 | Diagnostic Imaging Report ---
EXAM: CHEST 2 VIEWS DATE: 06/10/2019 1:19 PM INDICATION: Preoperative evaluation COMPARISON: None FINDINGS: The trachea is midline. Curvilinear opacity identified within the left lower lungs which may reflect atelectasis/scarring. There is no evidence for large focal consolidation, pneumothorax, or significant pleural effusion. The cardiomediastinal silhouette and pulmonary vasculature are within normal limits. Surgical clips noted overlying the left axilla/chest wall. No acute osseous abnormality is identified. IMPRESSION: No acute cardiopulmonary process identified. Signed by: Dr. Carlos Stafford MD on 06/10/2019 2:57 PM
[~2019-06-12] MED LIST changes: +AMIODARONE HCL200 MG PO; +BUMETANIDE1 MG PO; +BUPIVACAINE HCL 0.5% INJ 30 ML VIAL INJ ONE; +DEXAMETHASONE SOD PHOS INJ 4 MG/ML VIAL ONE; +FENTANYL CITRATE/PF 100MCG/2 ML INJ ONE; +JANUVIA100 MG PO; +LANTUS 3ML100 UNITS/ SC; +LETROZOLE PO; +LIDOCAINE HCL 2% LOCAL INJ 5 ML SDV VIAL INJ ONE; +METOLAZONE2.5 MG PO; +METOPROLOL SUCC25 MG PO; +MIDAZOLAM HCL 2 MG/2 ML VIAL ONE; +ONDANSETRON HCL INJ 2MG/ML 2ML 2 MG/ML VIAL ONE; +PROPOFOL IV EMULSION 10 MG/ML 20 ML VIAL ONE; +SEVOFLURANE INHAL SOLN 250 ML PEN BTL ONE; +XARELTO20 MG PO
--- OUTSIDE RECORDS SUMMARY | 2019-06-12 06:34 | XMS REPORT | Summary of Care ---
Author Author Ramya PRESCOTT Organization Unknown Address Unknown Phone Unavailable Care Team Providers Care Theatrical Trouper Name Role Phone BRYON MCFARLAND M.D. 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) Status: Active Dyspnea (786.09, R06.00) Status: Active Infiltrating ductal carcinoma of left female breast (174.9, C50.912) Status: Active Pulmonary embolism (415.19, I26.99) Status: Active Paresthesia of both hands (782.0, R20.2) Status: Active CTS (carpal tunnel syndrome) (354.0, G56.00) Status: Active Acute upper respiratory infection (465.9, J06.9) Status: Active Allergic rhinitis, seasonal (477.9, J30.2) Status: Active Diabetes mellitus type 2, controlled (250.00, E11.9) Status: Active Essential (primary) hypertension (401.9, I10) Status: Active Medications Name Dates Details ALPRAZolam 0.5 MG Oral Tablet TAKE 1 TABLET DAILY as needed Quantity: 30 MCFARLAND M.D.BRYON Active Glimepiride 4 MG Oral Tablet TAKE ONE TABLET BY MOUTH TWICE DAILY. * Quantity: 180 Refills: 1 MCFARLAND M.D.BRYON Active Metoprolol Tartrate 25 MG Oral Tablet TAKE 1 TABLET TWICE DAILY. * Quantity: 30 Refills: 3 MCFARLAND M.D.BRYON Active Fluticasone Propionate 50 MCG/ACT Nasal Suspension USE 2 SPRAYS IN EACH NOSTRIL ONCE DAILY NEEDED * Refills: 0 Active 9.9 ML Bottle Lantus 100 UNIT/ML Subcutaneous Solution INJECT 40 Units IN THE AM AND 10 SQ IN THE PM * Quantity: 6 Refills: 1 BRYON MCFARLAND M.D. Active 10 ML Vial Bumetanide 1 MG Oral Tablet TAKE 1 TABLET BY MOUTH EVERY MON, SUN, AND FRI IN THE MORNING * Quantity: 36 Refills: 1 BRYON MCFARLAND M.D. * Start : 24-Jul-2018 Active Losartan Potassium 25 MG Oral Tablet TAKE 1 TABLET DAILY. * Quantity: 90 Refills: 1 BRYON MCFARLAND M.D. * Start : 24-Jul-2018 Active Xarelto 20 MG Oral Tablet TAKE 1 TABLET DAILY * Quantity: 30 Refills: 6 Active Arnuity Ellipta AEPB 1 PUFF DAILY * Refills: 0 Active 30 Each Pack Januvia 100 MG Oral Tablet TAKE 1 TABLET BY MOUTH EVERY DAY * Quantity: 90 Refills: 1 JOSE MCFARLAND M.D.OLD * Start : 11-Dec-2018 Active Letrozole 2.5 MG Oral Tablet TAKE 1 TABLET DAILY. * Refills: 0 Active BD Insulin Syringe U/F 30G X 1/2" 0.5 ML USE DIRECTED. * Quantity: 200 Refills: 2 BRUNA Tapia BRYON * Start : 12-Feb-2019 Active Allergies and Adverse Reactions Name Dates Details Levaquin TABS (Allergy) Status: Active Past Medical History Name Dates Details History of abnormal mammogram (V15.89, Z87.898) Status: Resolved History of atrial fibrillation (V12.59, Z86.79) Status: Resolved History of congestive heart failure (V12.59, Z86.79) Status: Resolved History of essential hypertension (V12.59, Z86.79) Status: Resolved History of type 2 diabetes mellitus (V12.29, Z86.39) Status: Resolved Procedures Procedure Dates Details History of Catheter Ablation Atrial Fibrillation Completed Comments: Completed: 2018 History of Cervical Vertebral Fusion Completed History of Breast biopsy Completed 06-Jun-2018 History of Breast Surgery Lumpectomy Completed Immunization Name Dates Details Pneumovax 23 25 MCG/0.5ML Injection Injectable on: Apr-2013 Influenza, seasonal, injectable on: 01-Dec-2017 Influenza, seasonal, injectable on: 01-Jan-2019 Tdap on: 01-Jan-2019 Family History Name Dates Details Family history of hypertension (V17.49, Z82.49) Status: Active Name Dates Details Family history of Renal carcinoma (189.0, C64.9) Status: Active Social History Name Dates Details - Status: Name Dates Details Never smoker Vital Signs Date Test Result Details No Known Vitals to report Results Date Description Value Details Results not documented Plan of Care Name Dates Details Planned Observations Planned Goals not documented Planned Encounters Appointment; BRYON MCFARLAND M.D. On: 12-May-2019 10:30 Interventions Provided Medication Changes* Januvia 100 MG Oral Tablet - Renew Instructions Name Dates Details Instructions not documented Encounters Appointment; CIRO HENRIQUEZ Encounter Diagnosis: Problem not documented On: 19-Jul-2017 14:45 Appointment; CIRO HENRIQUEZ Encounter Diagnosis: Problem not documented On: 13-Sep-2017 14:30 Appointment; BRYON MCFARLAND M.D. Encounter Diagnosis: Problem not documented On: 24-Jul-2018 9:30 Appointment; BRYON MCFARLAND M.D. Encounter Diagnosis: Problem not documented On: 29-Jul-2018 14:45 Appointment; BRYON MCFARLAND M.D. Encounter Diagnosis: Problem not documented On: 05-Aug-2018 15:30 Appointment; BRYON MCFARLAND M.D. Encounter Diagnosis: Problem not documented On: 19-Aug-2018 11:30 Appointment; BRYON MCFARLAND M.D. Encounter Diagnosis: Problem not documented On: 19-Sep-2018 11:30 Appointment; BRYON MCFARLAND M.D. Encounter Diagnosis: Problem not documented On: 31-Oct-2018 14:30 Appointment; BRYON MCFARLAND M.D. Encounter Diagnosis: Problem not documented On: 31-Dec-2018 13:45 Appointment; BRYON MCFARLAND M.D. Encounter Diagnosis: Problem not documented On: 14-Feb-2019 13:15 Appointment; BRYON MCFARLAND M.D. Encounter Diagnosis: Problem not documented On: 03-Mar-2019 9:00
--- OUTSIDE RECORDS SUMMARY | 2019-06-12 06:34 | XMS REPORT | Summary of Care ---
Author Author [facility] Address [address] [place] [address] Phone Unavailable Care Team Providers Care Street Cleaner Name Role Phone BRUNA Tapia, BRYON Costello MD Unavailable Unavailable Unavailable Unavailable Functional Status Name Dates Details Functional status health issues are not documented Status: Name Dates Details Cognitive status health issues are not documented Status: Problems Name Dates Details Generalized anxiety disorder (300.02, F41.1) Status: Active Infiltrating ductal carcinoma of left female breast (174.9, C50.912) Status: Active Pulmonary embolism (415.19, I26.99) Status: Active Paresthesia of both hands (782.0, R20.2) Status: Active CTS (carpal tunnel syndrome) (354.0, G56.00) Status: Active Diastolic dysfunction, 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 Active Glimepiride 4 MG Oral Tablet TAKE ONE TABLET BY MOUTH TWICE DAILY. * Quantity: 180 Refills: 1 BRYON MCFARLAND M.D. Active Metoprolol Tartrate 25 MG Oral Tablet TAKE 1 TABLET TWICE DAILY. * Quantity: 30 Refills: 3 BRYON MCFARLAND M.D. Active Fluticasone Propionate 50 MCG/ACT Nasal Suspension [...] TAKE 1 TABLET BY MOUTH EVERY MON, WED, AND FRI IN THE MORNING * Quantity: 36 Refills: 1 BRYON MCFARLAND M.D. * Start : 24-Jul-2018 Active Losartan Potassium 25 MG Oral Tablet TAKE 1 TABLET DAILY. * Quantity: 90 Refills: 1 BRYON MCFARLAND M.D. * Start : 24-Jul-2018 Active Arnuity Ellipta AEPB 1 PUFF DAILY * Refills: 0 Active 30 Each Pack Januvia 100 MG Oral Tablet TAKE 1 TABLET BY MOUTH EVERY DAY * Quantity: 90 Refills: 1 BRYON MCFARLAND M.D. * Start : 11-Dec-2018 Active Letrozole 2.5 MG Oral Tablet TAKE 1 TABLET DAILY. * Refills: 0 Active BD Insulin Syringe U/F 30G X 1/2" 0.5 ML USE DIRECTED. * Quantity: 200 Refills: 2 BRYON MCFARLAND M.D. * Start : 12-Feb-2019 Active Xarelto 20 MG Oral Tablet TAKE 1 TABLET DAILY * Quantity: 30 Refills: 6 Active Allergies and Adverse Reactions Name Dates [...] Appointment; BRYON MCFARLAND M.D. On: 12-May-2019 10:30 Instructions Name Dates Details Instructions not documented [...]
--- OUTSIDE RECORDS SUMMARY | 2019-06-12 06:34 | XMS REPORT | Summary of Care ---
Author Author Mattie Gandhi M.A. Organization Unknown Address [facility] Phone Unavailable Care Team Providers Care Country Sales Manager Name Role Phone BRYON MCFARLAND M.D. Unavailable BRUNA RINCON VABRYON Unavailable Unavailable Unavailable Unavailable Functional Status Name [...] THE PM * Quantity: 6 Refills: 1 BRUNA TapiaBRYON Active 10 ML Vial Bumetanide 1 MG Oral Tablet TAKE 1 TABLET BY MOUTH EVERY MON, SUN, AND FRI IN THE MORNING * Quantity: 36 Refills: 1 BRUNA Tapia BRYON * Start : 24-Jul-2018 Active Losartan Potassium 25 MG Oral Tablet TAKE 1 TABLET DAILY. * Quantity: 90 Refills: 1 BRUNA Tapia BRYON * Start : 24-Jul-2018 Active Xarelto 20 MG Oral Tablet TAKE 1 TABLET DAILY * Quantity: 30 Refills: 6 Active Arnuity Ellipta AEPB 1 PUFF DAILY * Refills: 0 Active 30 Each Pack Januvia 100 MG Oral Tablet TAKE 1 TABLET BY MOUTH EVERY DAY * Quantity: 90 Refills: 1 BRUNA TapiaBRYON * Start : 11-Dec-2018 Active Letrozole 2.5 MG Oral Tablet TAKE 1 TABLET DAILY. * Refills: 0 Active BD Insulin Syringe U/F 30G X 1/2" 0.5 ML USE DIRECTED. * Quantity: 200 Refills: 2 BRUNA TapiaBRYON * Start : 12-Feb-2019 Active Allergies and [...] smoker Vital Signs Date Test Result Details [id number] BP Systolic 106 mm[Hg] Status: Comments: Location: LUE; Position: Sitting BP Diastolic 65 mm[Hg] Status: Comments: Location: LUE; Position: Sitting Physical Findings 0 Status: Comments: Alcohol Screen - How many times in the past yr have you had 5 (for M) or 4 (for F) or 4 (for all > 65yrs) or more drinks in a day? Height 61 in Status: Weight 263 lb Status: Body Mass Index Calculated 49.69 kg/m2 Status: Body Surface Area Calculated 2.12 m2 Status: Temperature 98.8 f Status: Comments: Method: Oral Heart Rate 69 /min Status: Respiration Rate 16 /min Status: Results Date Description Value Details Results not documented Plan of Care Name Dates Details Planned Observations Planned Goals not documented Instructions Name Dates Details Instructions not documented [...] Diagnosis: Problem not documented On: 03-Mar-2019 9:00 Appointment; BRYON MCFARLAND M.D. Encounter Diagnosis: Problem not documented On: 12-May-2019 10:30
--- OUTSIDE RECORDS SUMMARY | 2019-06-12 06:34 | XMS REPORT | Summary of Care ---
Author Author [facility] Address [address] [place] [address] Phone Unavailable Care Team Providers Care Wool Hat Flanger Name Role Phone BRYON MCFARLAND M.D. 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) Status: Active Acute upper respiratory infection (465.9, J06.9) Status: Active Essential (primary) hypertension (401.9, I10) Status: Active Dyspnea (786.09, R06.00) Status: Active CTS (carpal tunnel syndrome) (354.0, G56.00) Status: Active Peripheral edema (782.3, R60.9) Status: Active Pulmonary embolism (415.19, I26.99) Status: Active Allergic rhinitis, seasonal (477.9, J30.2) Status: Active Diabetes mellitus type 2, controlled (250.00, E11.9) Status: Active Infiltrating ductal carcinoma of left female breast (174.9, C50.912) Status: Active Paresthesia of both hands (782.0, R20.2) Status: Active Medications Name Dates Details Metoprolol Tartrate 25 MG Oral Tablet TAKE 1 TABLET TWICE DAILY. Quantity: 30 MCFARLANDLUIS ANGEL Tapia, BRYON Active Fluticasone Propionate 50 MCG/ACT Nasal Suspension [...] THE MORNING * Quantity: 36 Refills: 1 MCFARLANDBRYON PLASENCIA M.D. * Start : 24-Jul-2018 Active Losartan Potassium 25 MG Oral Tablet TAKE 1 TABLET DAILY. * Quantity: 90 Refills: 1 BRYON MCFARLAND M.D. * Start : 24-Jul-2018 Active Arnuity Ellipta AEPB 1 PUFF DAILY * Refills: 0 Active 30 Each Pack Letrozole 2.5 MG Oral Tablet TAKE 1 TABLET DAILY. * Refills: 0 Active BD Insulin Syringe U/F 30G X 1/2" 0.5 ML USE DIRECTED. * Quantity: 200 Refills: 2 BRYON MCFARLAND M.D. * Start : 12-Feb-2019 Active Glimepiride 4 MG Oral Tablet TAKE ONE TABLET BY MOUTH TWICE DAILY. * Quantity: 180 Refills: 1 BRYON MCFARLAND M.D. Active Januvia 100 MG Oral Tablet TAKE 1 TABLET BY MOUTH EVERY DAY * Quantity: 90 Refills: 1 BRYON MCFARLAND M.D. * Start : 11-Dec-2018 Active Xarelto 20 MG Oral Tablet TAKE 1 TABLET DAILY * Quantity: 30 Refills: 6 Active ALPRAZolam 0.5 MG Oral Tablet TAKE 1 TABLET DAILY as needed * Quantity: 30 Refills: 0 BRYON MCFARLAND M.D. Active Allergies and Adverse Reactions Name Dates [...] Resolved Procedures Procedure Dates Details History of Breast Surgery Lumpectomy Completed History of Cervical Vertebral Fusion Completed History of Catheter Ablation Atrial Fibrillation Completed Comments: Completed: 2017 History of Breast biopsy Completed 06-Jun-2018 Immunization Name Dates Details Pneumovax 23 25 [...]
--- OUTSIDE RECORDS SUMMARY | 2019-06-12 06:34 | XMS REPORT | Summary of Care ---
Author Author [facility] Address [address] [place] [address] Phone Unavailable Care Team Providers Care Bilingual Nanny Name Role Phone BRUNA Tapia, BRYON Costello [...] TABLET DAILY as needed Quantity: 30 MCFARLAND M.DBRYON Garcia Active Glimepiride 4 MG Oral Tablet TAKE ONE TABLET BY MOUTH TWICE DAILY. * Quantity: 180 Refills: 1 BRUNA Thomson.BRYON Felix Active Metoprolol Tartrate 25 MG Oral Tablet TAKE 1 TABLET TWICE DAILY. * Quantity: 30 Refills: 3 MCFARLAND M.DBRYON Garcia Active Fluticasone Propionate 50 MCG/ACT Nasal Suspension [...] smoker Vital Signs Date Test Result Details [id number] BP Systolic 106 mm[Hg] Status: Comments: Location: [...]
--- OUTSIDE RECORDS SUMMARY | 2019-06-12 06:35 | XMS REPORT | Summary of Care ---
Author Mariah Candelario Unknown Address [facility] Phone Unavailable Care Team Providers Care End Finder Forming Department Name Role Phone BRUNA Tapia, BRYON Unavailable Unavailable BRUNA RINCON [place], BRYON Malone Unavailable Unavailable Unavailable Unavailable Functional Status Name Dates Details Functional status health issues are not documented Status: Name Dates Details Cognitive status health issues are not documented Status: Problems Name Dates Details Generalized anxiety disorder (300.02, F41.1) Status: Active Peripheral edema (782.3, R60.9) Status: Active Diastolic dysfunction, left ventricle (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, I51.9) Status: Active Dyspnea (786.09, R06.00) Status: Active Pulmonary embolism (415.19, I26.99) Status: Active Paresthesia of both hands (782.0, R20.2) Status: Active Acute upper respiratory infection (465.9, J06.9) Status: Active Allergic rhinitis, seasonal (477.9, J30.2) Status: Active Essential (primary) hypertension (401.9, I10) Status: Active Diabetes mellitus type 2, controlled (250.00, E11.9) Status: Active Infiltrating ductal carcinoma of left female breast (174.9, C50.912) Status: Active CTS (carpal tunnel syndrome) (354.0, G56.00) Status: Active Medications Name Dates Details ALPRAZolam [...] PM * Quantity: 6 Refills: 1 BRUNA Tapia BRYON Active 10 ML Vial Bumetanide 1 MG Oral Tablet TAKE 1 TABLET BY MOUTH EVERY MON, SUN, AND SUN IN THE MORNING * Quantity: 36 Refills: 1 BRUNA TapiaBRYON * Start : 24-Jul-2018 Active Losartan Potassium [...] Z86.39) Status: Resolved Procedures Procedure Dates Details [[facility]] HEMOGLOBIN A1c Date: 12-May-2019 History of Catheter Ablation Atrial Fibrillation Completed [...] smoker Vital Signs Date Test Result Details [id number] BP Systolic 106 mm[Hg] Status: Comments: Location: LUE; Position: Sitting BP Diastolic 65 mm[Hg] Status: Comments: Location: LUE; Position: Sitting Physical Findings 2 Status: Comments: PHQ-9 Adult Depression Screening Physical Findings 0 Status: Comments: Alcohol Screen [...] Planned Encounters Appointment; BRYON MCFARLAND M.D. On: 11-Aug-2019 11:00 Interventions Provided Labs/Procedures/Imaging* [[facility]] HEMOGLOBIN A1c; To Be Done: 12 May 2019 Follow-ups/Referrals* Neurosurgery Referral; To Be Done: 12 May 2019 * Follow-up visit in 4 months; Done: 12 May 2019 Plan* Continue current medication same. Refer to neurosurgery Dr Marroquin. Request A1C. RTC in three months. Instructions Name Dates Details Instructions not documented [...]
[2019-06-12] MEDS: DEXTROSE 5% 250ML 250 ML IV ONE (07:51)
[2019-06-12 09:40] VITALS: BP 121/53
--- NOTE | 2019-06-12 15:33 | Operative Report ---
DATE OF PROCEDURE: 06/12/2019 SURGEON: Raul Marroquin MD PREOPERATIVE DIAGNOSIS: Right carpal tunnel syndrome. POSTOPERATIVE DIAGNOSIS: Right carpal tunnel syndrome. PROCEDURE: Right carpal tunnel release. ANESTHESIA: General. INDICATIONS: The patient is a 64-year-old woman, who presents with right carpal tunnel syndrome and was taken surgery for right carpal tunnel release. PROCEDURE IN DETAIL: After induction of anesthesia, the patient's right arm was abducted over a hand table and prepped and draped circumferentially in sterile fashion. The tourniquet was inflated over the upper arm to 250 mmHg. A small midline incision was created over the median palmar crease of the hand just distal to the distal flexor crease of the wrist. The subcutaneous fat was divided and the transverse carpal ligament was identified and incised with a #15 C blade until the underlying median nerve came into view. As the railways assistant retracted the skin edges, the transverse carpal ligament was divided proximally and distally with tenotomy scissors until the entire length of the median nerve within the carpal tunnel was exposed and decompressed. The point of maximal compression of the nerve appeared to be about 2 cm distal to the distal flexor crease of the wrist where the ligament was at its thickest. More distally, the recurrent motor branch of the nerve was preserved within its fat pad. The wound was irrigated with bacitracin solution, subcutaneous layer was closed with a 3-0 Vicryl suture, and the skin was closed with a 3-0 nylon suture in a horizontal mattress fashion. A dressing was applied and hand was wrapped. The patient was awakened, extubated, and taken to postanesthesia care unit in stable condition. No intraoperative complications were encountered. Estimated blood loss is minimal. Raul Marroquin MD PP/MODL /[id number]
== END | disposition home or self-care (01) ==
LOC: OR 06:23
PROVIDERS: ATTEND Neurological Surgery
DX: G56.01 Carpal tunnel syndrome, right upper limb (principal); E11.22 Type 2 diabetes mellitus with diabetic chronic kidney disease; I13.0 Hypertensive heart and chronic kidney disease with heart failure and stage 1 through stage 4 chronic kidney disease, or unspecified chronic kidney disease; N18.9 Chronic kidney disease, unspecified; I50.9 Heart failure, unspecified; I27.20 Pulmonary hypertension, unspecified; I35.1 Nonrheumatic aortic (valve) insufficiency; I48.91 Unspecified atrial fibrillation; Z88.1 Allergy status to other antibiotic agents; Z01.810 Encounter for preprocedural cardiovascular examination; Z01.812 Encounter for preprocedural laboratory examination; Z01.818 Encounter for other preprocedural examination; Z79.02 Long term (current) use of antithrombotics/antiplatelets; Z79.84 Long term (current) use of oral hypoglycemic drugs; Z79.4 Long term (current) use of insulin; Z68.39 Body mass index [BMI] 39.0-39.9, adult; Z86.711 Personal history of pulmonary embolism
CPT/HCPCS: 36415 ×2; 64721; 71046; 80048; 82948; 85025; 85610; 85730; J1100; J2001; J2250; J2405; J2704; J3010; J7070